=== PATIENT | male | born 1995 | race Caucasian/White ===

== ENCOUNTER 2021-08-25 22:45 | Emergency (ER) | payer SELFPAY ==
[2021-08-26] MEDS ORDERED: CEPHALEXIN500 M1 PO (00:46)
== END 2021-08-26 01:15 | disposition home or self-care (01) ==
LOC: ER1 22:45
DX: S62.666A Nondisplaced fracture of distal phalanx of right little finger, initial encounter for closed fracture (principal); W22.8XXA Striking against or struck by other objects, initial encounter; Y92.009 Unspecified place in unspecified non-institutional (private) residence as the place of occurrence of the external cause
CPT/HCPCS: 12001; 73140; 99283

== ENCOUNTER 2022-03-07 21:45 | Emergency (ER) | payer BC ==
[~2022-03-07 21:45] MED LIST: CEPHALEXIN500 M1 PO
[2022-03-07 22:05] LABS: HEMOGLOBIN 15.5 gm/dl (14.0-17.5); RED BLOOD COUNT 5.07 M/UL (4.20-5.50); WHITE BLOOD COUNT 6.7 K/UL (4.5-11.0)
[2022-03-07 22:26] LABS: BUN/CREATININE RATIO 12 (0-10)
[2022-03-07] MEDS ORDERED: KEPPRA 250 MG250 MG GT (23:12)
== END 2022-03-08 00:05 | disposition home or self-care (01) ==
LOC: ER1 21:45
PROVIDERS: Family Medicine
DX: G40.909 Epilepsy, unspecified, not intractable, without status epilepticus (principal)
CPT/HCPCS: 80053; 85025; 93005; 99285